=== PATIENT | male | born 1945 | race Caucasian/White ===

== ENCOUNTER 2021-06-28 09:31 | Outpatient (CLI) | payer MEDICARE ==
[2021-06-28 11:22] LABS: #Eosinphils 0.1 10x3/uL (0.0-0.5); #Monocytes 0.7 10x3/uL (0.0-1.1); #Neutrophils 4.3 10x3/uL (1.5-8.4); %Basophils 0.4 % (0.0-2.0); %Lymphocytes 29.5 % (18.0-47.0); %Monocytes 9.4 % (0.0-10.0); %Neutrophils 59.4 % (40.0-75.0); Hemoglobin 13.4 g/dL (13.5-17.5); Mean Corpuscular HGB CONC 31.8 g/dL (32.0-36.0); Mean Corpuscular Hemoglobin 30.8 pg (27.0-33.0); Mean Corpuscular Volume 96.8 fl (81.2-95.1); Mean Platelet Volume 11.3 fl (7.4-10.4); Platelet Count 169 10x3/uL (150-450); RBC Distribution Width 13.2 % (11.5-14.5); Red Blood Cell (RBC) Count 4.35 10x6/uL (4.32-5.72); White Blood Cell (WBC) Count 7.2 10x3/uL (3.5-10.5)
[2021-06-28 11:43] LABS: Anion Gap 12 mmol/L (10-20); BUN (Urea Nitrogen) 15 mg/dL (8.4-25.7); Calc. Creatinine Clearance 0 mL/min (70-130); Calcium 9.4 mg/dL (7.8-10.44); Carbon Dioxide 29 mmol/L (23-31); Chloride 106 mmol/L (98-107); Glucose 123 mg/dL (83-110); Potassium 4.8 mmol/L (3.5-5.1); Sodium 142 mmol/L (136-145)
[2021-06-29 01:30] LABS: SARS-CoV-2 PCR by NAA Not Detected (NotDetected)
== END 2021-06-28 09:32 | disposition home or self-care (01) ==
LOC: CSHLAB 09:31
PROVIDERS: ATTEND Otolaryngology Otolaryngic Allergy
DX: Z01.818 Encounter for other preprocedural examination (principal); Z20.822 Contact with and (suspected) exposure to COVID-19; J38.1 Polyp of vocal cord and larynx
CPT/HCPCS: 80048; 85025; 93005; 93010; U0003; U0005

== ENCOUNTER 2021-07-03 05:52 | Day surgery (SDC) | payer MEDICARE ==
[2021-06-26 14:04] VITALS: BMI 26.6
[2021-07-03] MEDS ORDERED: Triamcinolone 40 MG/ML VIAL ONE (06:51)
[2021-07-03] MEDS ORDERED: EPINEPHrine 1 MG/ML AMP ONE (06:51)
[2021-07-03] MEDS ORDERED: Lidocaine 1% MPF 2 ML VIAL ONE (06:51)
[2021-07-03] MEDS ORDERED: Rocuronium Bromide 10 MG/ML (10ML VIAL) ONE ×2 (07:03→08:42)
[2021-07-03] MEDS ORDERED: Lidocaine 1% PF 5 ML VIAL ONE ×2 (07:03→08:42)
[2021-07-03] MEDS ORDERED: PROPOFOL 20 ML ONE (07:03)
[2021-07-03] MEDS ORDERED: SUGAMMADEX SODIUM 200 MG/2 ML VIAL ONE (07:05)
[2021-07-03] MEDS ORDERED: PROPOFOL 40 ML ONE (07:05)
[2021-07-03] MEDS ORDERED: Fentanyl 100 MCG/2 ML VIAL ONE (07:11)
[2021-07-03] MEDS ORDERED: Famotidine/PF 20 mg/2ml Vial ONE (07:28)
[2021-07-03] MEDS ORDERED: ePHEDrine Sulfate 50 MG/10 ML VIAL ONE (07:29)
[2021-07-03] MEDS ORDERED: Ondansetron PF 4 MG/2 ML Vial ONE (08:42)
== END 2021-07-03 09:20 | disposition home or self-care (01) ==
LOC: CSHSDC 05:52
PROVIDERS: ATTEND Otolaryngology Otolaryngic Allergy
PROC: 3E0F8GC Introduction of Other Therapeutic Substance into Respiratory Tract, Via Natural or Artificial Opening Endoscopic (ICD-10-PCS; principal; 2021-07-03)
PROC: 0CBV8ZX Excision of Left Vocal Cord, Via Natural or Artificial Opening Endoscopic, Diagnostic (ICD-10-PCS; 2021-07-03)
DX: D14.1 Benign neoplasm of larynx (principal); I10 Essential (primary) hypertension; I25.10 Atherosclerotic heart disease of native coronary artery without angina pectoris; E11.9 Type 2 diabetes mellitus without complications; Z79.02 Long term (current) use of antithrombotics/antiplatelets; Z79.82 Long term (current) use of aspirin; Z79.84 Long term (current) use of oral hypoglycemic drugs; Z79.899 Other long term (current) drug therapy; Z88.8 Allergy status to other drugs, medicaments and biological substances; Z87.891 Personal history of nicotine dependence
CPT/HCPCS: 36416; 88305; J0171; J2405; J2704; J3010; J3301; S0028